=== PATIENT | male | born 1965 | race Caucasian/White ===

== ENCOUNTER 2020-11-06 09:42 | Outpatient (CLI) | payer BC, SELFPAY ==
--- NOTE | 2020-11-06 15:00 | EST_ITS ---
Patient Info Name: Nas Mendieta Age: 54 years : 1965 Gender: Male Ht: 69 in Wt: 243 lbs BSA: 2.36 m2 HR: 71 bpm BP: 114 / 64 mmHg Heart Rhythm: Left Fascicular Block, Sinus Rhythm Technical Quality: Good Exam Date: 11/06/2020 10:09 AM Exam Location: [facility] Patient Status: Outpatient Admit Date: 11/06/2020 Staff Ordering Physician: Ricardo Vazquez MD Attending Provider: Ricardo Vazquez MD Exercise Technologist: Sylvia Bettencourt CRT Exercise Physician: Bridget Del Rio CEP Exam Type: CA stress test treadmill Study Info Indications CerebralInfarction - An exercise stress test was performed. History/Risk Factors None. Summary 1. 1. Negative Td exercise stress test for ischemic ST changes by ECG criteria. 2. 2. Good functional capacity, achieving 9.5 METs of workload. 3. 3. Appropriate HR response to exercise. 4. 4. Appropriate HR recovery at 1 minute post exercise. 5. 5. No imaging with stress testing. Protocol: Td Stress ECG Details Stage: REST Duration (min): 1 min : 55 sec Speed (mph): 0.0 Grade (%): 0 HR (bpm): 69 SBP (mmHg): 114 DBP (mmHg): 64 METS: --- Stage: REST Duration (min): 4 min : 23 sec Speed (mph): 0.0 Grade (%): 0 HR (bpm): 76 SBP (mmHg): 114 DBP (mmHg): 64 METS: --- Stage: STAGE 1 Duration (min): 1 min : 0 sec Speed (mph): 1.7 Grade (%): 10 HR (bpm): 105 SBP (mmHg): 114 DBP (mmHg): 64 METS: --- Stage: STAGE 1 Duration (min): 2 min : 0 sec Speed (mph): 1.7 Grade (%): 10 HR (bpm): 113 SBP (mmHg): 114 DBP (mmHg): 64 METS: --- Stage: STAGE 1 Duration (min): 3 min : 0 sec Speed (mph): 1.7 Grade (%): 10 HR (bpm): 116 SBP (mmHg): 156 DBP (mmHg): 64 METS: --- Stage: STAGE 2 Duration (min): 1 min : 0 sec Speed (mph): 2.5 Grade (%): 12 HR (bpm): 127 SBP (mmHg): 156 DBP (mmHg): 64 METS: --- Stage: STAGE 2 Duration (min): 2 min : 0 sec Speed (mph): 2.5 Grade (%): 12 HR (bpm): 136 SBP (mmHg): 156 DBP (mmHg): 64 METS: --- Stage: STAGE 2 Duration (min): 3 min : 0 sec Speed (mph): 2.5 Grade (%): 12 HR (bpm): 143 SBP (mmHg): 179 DBP (mmHg): 72 METS: --- Stage: STAGE 3 Duration (min): 1 min : 0 sec Speed (mph): 3.4 Grade (%): 14 HR (bpm): 151 SBP (mmHg): 179 DBP (mmHg): 72 METS: --- Stage: STAGE 3 Duration (min): 1 min : 59 sec Speed (mph): 3.4 Grade (%): 14 HR (bpm): 158 SBP (mmHg): 179 DBP (mmHg): 72 METS: --- Stage: RECOVERY Duration (min): 1 min : 0 sec Speed (mph): 0.0 Grade (%): 0 HR (bpm): 145 SBP (mmHg): 146 DBP (mmHg): 66 METS: --- Stage: RECOVERY Duration (min): 2 min : 0 sec Speed (mph): 0.0 Grade (%): 0 HR (bpm): 127 SBP (mmHg): 154 DBP (mmHg): 67 METS:
== END 2020-11-06 09:43 | disposition home or self-care (01) ==
LOC: CHSCARD 09:47
PROVIDERS: PCP Internal Medicine; Visit Provider Internal Medicine
DX: I63.9 Cerebral infarction, unspecified (principal)
CPT/HCPCS: 93017

== ENCOUNTER 2023-06-12 15:42 | Observation (INO) | payer OTHER, SELFPAY ==
[2023-06-12] VITALS (7 sets, daily range): BP systolic 100–126; BP diastolic 66–85; PULSE 84–100; RESP 16–20; TEMP 36.2; O2SAT 94–98
--- NOTE | ~2023-06-12 | XR_ITS ---
XR chest 1V portable 06/12/2023 16:29 Indication: Shortness of breath Procedure: AP portable chest Comparison: 09/17/2018 Findings: Heart size normal. Right basilar infiltrates. Mild elevation the right diaphragm. Left lung clear. No significant effusion, edema or pneumothorax. Impression: 1: Bibasilar infiltrates may represent atelectasis or developing pneumonia. Reviewed, dictated and finalized at location L. RMATION SCIENTIST Impression: 1: Bibasilar infiltrates may represent atelectasis or developing pneumonia.
--- NOTE | ~2023-06-12 | CT_ITS ---
EXAMINATION: CT brain wo con DATE: 06/12/2023 16:29 INDICATION: Syncope TECHNIQUE: Computed tomography (CT) of the head was performed without intravenous contrast. Sagittal and coronal reconstructions were performed. The mA was adjusted according to patient size. Iterative reconstruction technique was employed. The dose-length product was 605.33 mGy-cm. COMPARISON: None FINDINGS: No acute intracranial hemorrhage, acute infarction or abnormal extra axial fluid collection. Ventricl es are normal and symmetric. No mass/mass effect. Prominent mucosal thickening the bilateral ethmoid sinuses and small amount of dependently layering mucus in the right sphenoid sinus. The orbits and ma stoid air cells are normal. IMPRESSION: 1. Normal brain. No acute intracranial process. Reviewed, dictated and finalized at location A. NE REPAIRER
--- NOTE | 2023-06-12 15:57 | ECG_ITS ---
Measurements Intervals [place] Rate: 77 P: 65 IA: 157 QRS: 1 QRSD: 101 T: 72 QT: 354 QTc: 402 Interpretive Statements SINUS RHYTHM WITH SINUS ARRHYTHMIA INCOMPLETE RIGHT BUNDLE BRANCH BLOCK BASELINE ARTIFACT- I, II, III, AVR, AVL, AVF BORDERLINE ECG NO PREVIOUS ECG AVAILABLE FOR COMPARISON Electronically Signed On 06-12-2023 20:03:05 BE[employer] TRAPPER by Dm Cruz D.O.
[2023-06-12] MEDS: SODIUM CHLORIDE 0.9% IV 1,000 ML 999 ML IV CONT (16:09)
[2023-06-12 16:14] LABS: Hematocrit 53.3 % (40.0-54.0); Mean Corpuscular HGB Conc 33.8 g/dL (32.0-36.0); Mean Corpuscular Hemoglobin 32.2 pg (27.0-31.0); Mean Corpuscular Volume 95.3 fL (78.0-102.0); Mean Platelet Volume 9.5 fl (8.7-11.0); Platelet Count Result 276 K/mm3 (150-420); Red Blood Count 5.59 M/mm3 (4.70-6.10); Red Cell Distribution Width 12.2 % (11.6-14.4); White Blood Count 16.7 K/mm3 (4.8-10.8)
[2023-06-12 16:32] LABS: INR 1.1; Partial Thromboplastin Time 28.6 SEC (23.90-30.70); Prothrombin Time 11.9 Seconds (9.50-12.10)
[2023-06-12 16:35] LABS: Lactic Acid Reflex 1.5 mmol/L (0.4-2.0)
[2023-06-12 16:36] LABS: Band Neutrophils Percent 0 % (0-6); Lymphocytes Absolute Manual 0.83 K/mm3 (1.1-4.5); Lymphocytes Percent Manual 5 % (18-44); Monocytes Absolute Manual 0.33 K/mm3 (0.1-0.90); Monocytes Percent Manual 2 % (3-9); Neutrophils Absolute Manual 15.19 K/mm3 (1.3-6.7); Neutrophils Percent Manual 91 % (46-73); Platelet Estimate Adequate (Adequate); Total Cells Counted 100
[2023-06-12 16:37] LABS: Eosinophils Absolute Manual 0.33 K/mm3 (0.02-0.5); Eosinophils Percent Manual 2 % (1-6)
[2023-06-12 16:50] LABS: Alanine Aminotransferase 31 U/L (16-63); Albumin Level 4.1 g/dL (3.4-5.0); Alkaline Phosphatase 130 U/L (46-116); Anion Gap 7 mmol/L (8-16); Aspartate Amino Transferase 18 U/L (15-37); Bilirubin,Total 0.5 mg/dL (0.00-1.00); Blood Urea Nitrogen 15 mg/dL (7-18); Carbon Dioxide 32 mmol/L (21-32); Chloride 102 mmol/L (98-108); Estimated CRCL calculation 68 ml/min; Estimated Glomerular Filt Rate 56; Glucose 123 mg/dL (70-99); Magnesium 1.9 mg/dL (1.8-2.4); NT Pro B Type Natriuretic Pept 25 pg/mL (0-125); Osmolality Calculated 293 mOsm/kg (285-295); Potassium 4.5 mmol/L (3.5-5.1); Sodium 141 mmol/L (136-145); Total Protein 8.2 g/dL (6.4-8.2)
[2023-06-12 16:53] LABS: Troponin I < 4.0 ng/L (0.00-60.4)
[2023-06-12 17:29] LABS: Influenza A QL RT-PCR Negative (Negative); Influenza B QL RT-PCR Negative (Negative); RSV RNA, RT-PCR Negative (Negative); SARS-CoV-2 RNA PCR Negative (Negative)
--- NOTE | 2023-06-12 17:40 | ED.SYNCOPE ---
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 No significant past medical history, is a smoker. Currently not short of breath does have cold-like symptoms with mild nonproductive cough and congestion. MD complaint: loss of consciousness Onset (ago): hour(s) Duration of episode: 10 -: second(s) Prodromal symptoms: lightheaded, diaphoresis and nausea/vomiting Witnessed: Yes - by Bystander Context: at rest Injuries sustained associated with event: none Current symptoms: weakness Related Data Home Medications Medication Instructions Recorded Confirmed No Home Medications 06/12/23 06/12/23 Allergies Allergy/AdvReac Type Severity Reaction Status Date / Time No Known Allergies Allergy Verified 06/12/23 15:59 Review of Systems Review of Systems: All systems reviewed & are unremarkable except as noted in HPI and below PMFSH Past Medical History Medical History Tobacco abuse Exam Const: General: no acute distress and diaphoretic Nutritional Appearance: obese Orientation/consciousness: patient oriented x3 Limitations: no limitations HENMT: Head: normal to inspection Face and sinus: normal facial exam Mouth: Yes Normal oral and palatal mucosa present Eyes: Conjunctivae: conjunctivae normal Neck: Neck: normal visual inspection Chest: Chest palpation & inspection: normal inspection of the chest Resp: Effort & Inspection: normal respiratory effort Auscultation: clear to auscultation bilaterally Cardio: Rate: regular rate Rhythm: regular rhythm GI: Auscultation: normal bowel sounds Skin: General skin exam: normal color Rashes: no rashes Wounds: no wounds Neuro: General: patient oriented x3, moves all extremities and no meningeal signs Extrem: General: normal to inspection Psych: Mental Status: mental status grossly normal Affect: normal affect Course Course Emergency Course: patient continues to have weakness and feels cold asking for extra blankets, chest x-ray performed appears to have lower lobe infiltrates and blood count elevated at 16,000 white blood cell count, lactic acid is negative, COVID is an RSV and influenza are negative. Patient received a L of IV fluids warm blankets and started on IV antibiotics with ceftriaxone and azithromycin for pneumonia. Vital Signs Vital signs: Vital Signs Temperature 36.2 C L 06/12/23 15:42 Pulse Rate 84 06/12/23 15:42 Respiratory Rate 18 06/12/23 15:42 Blood Pressure 124/66 06/12/23 15:42 Pulse Oximetry 94 06/12/23 15:42 Oxygen Delivery Room Air 06/12/23 15:42 Temperature 36.2 C L 06/12/23 15:50 Pulse Rate 84 06/12/23 15:50 Respiratory Rate 20 06/12/23 15:50 Blood Pressure 124/66 06/12/23 15:50 Pulse Oximetry 94 06/12/23 16:18 Oxygen Delivery Room Air 06/12/23 16:18 MDM - Syncope Lab Data 06/12/23 16:09 06/12/23 16:09 Labs: Lab Results 06/12/23 06/12/23 Range/Units 16:09 16:35 WBC 16.7 H (4.8-10.8) K/mm3 RBC 5.59 (4.70-6.10) M/mm3 Hgb 18.0 (14.0-18.0) g/dL Hct 53.3 (40.0-54.0) % MCV 95.3 (78.0-102.0) fL MCH 32.2 H (27.0-31.0) pg MCHC 33.8 (32.0-36.0) g/dL RDW 12.2 (11.6-14.4) % Plt Count 276 (150-420) K/mm3 MPV 9.5 (8.7-11.0) fl Immature Gran % (Auto) Not Reportable Neut % (Auto) Not Reportable Lymph % (Auto) Not Reportable [place] % (Auto) Not
[2023-06-12] MEDS: AZITHROMYCIN 500 MG/NS 250 ML 500 MG/250 ML BAG 250 MG IVPB (18:17)
[2023-06-12] MEDS: NICOTINE (*PBKC) 21 MG PATCH 1 PATCH TRANSDERM (19:15)
[2023-06-12] MEDS: SODIUM CHLORIDE 0.9% IV 1,000 ML 100 ML IV CONT (19:50)
[2023-06-13] VITALS: BP 126/68; PULSE 98; RESP 18; TEMP 37.2; O2SAT 94
[2023-06-13 03:35] LABS: Appearance Urine Clear (Clear); Bilirubin Urine Negative (Negative); Blood Urine Negative (Negative); Color Urine Yellow (Yellow); Glucose Urine UA Negative (Negative); Ketones Urine Negative (Negative); Leukocyte Esterase Ur Negative LEU/UL (Negative); Nitrate Urine Negative (Negative); Protein Urine Trace (Negative); Specific Grav Ur 1.025 (1.010-1.020); pH Urine 6.5 (5.0-8.0)
[2023-06-13 03:40] LABS: Add Urine Microscopic? YES; Bacteria Urine None seen /hpf; Mucus Urine Noted /lpf; RBC Urine 0-2 /hpf (0-2); Squamous Epithelial Cell Urine None seen /hpf (Few); WBC Urine 0-3 /hpf (0-3)
[2023-06-13 05:43] LABS: Basophils Absolute Auto 0.02 K/mm3 (0.00-0.10); Basophils Percent Auto 0.2 % (0.0-1.0); Eosinophils Absolute Auto 0.01 K/mm3 (0.02-0.50); Eosinophils Percent Auto 0.1 % (1.0-6.0); Hematocrit 43.7 % (40.0-54.0); Hemoglobin 14.8 g/dL (14.0-18.0); Immature Granulocyte Absolute 0.05 K/mm3 (0.00-0.00); Immature Granulocyte Percent A 0.4 % (0.0-0.0); Lymphocytes Absolute Auto 0.89 K/mm3 (1.10-4.50); Lymphocytes Percent Auto 6.8 % (18.0-42.0); Mean Corpuscular HGB Conc 33.9 g/dL (32.0-36.0); Mean Corpuscular Hemoglobin 32.5 pg (27.0-31.0); Mean Corpuscular Volume 95.8 fL (78.0-102.0); Mean Platelet Volume 9.2 fl (8.7-11.0); Monocytes Absolute Auto 0.78 K/mm3 (0.10-0.90); Monocytes Percent Auto 5.9 % (2.0-11.0); Neutrophils Absolute Auto 11.4 K/mm3 (1.7-7.2); Neutrophils Percent Auto 86.6 % (50.0-70.0); Platelet Count Result 208 K/mm3 (150-420); Red Blood Count 4.56 M/mm3 (4.70-6.10); Red Cell Distribution Width 12.6 % (11.6-14.4); White Blood Count 13.2 K/mm3 (4.8-10.8)
[2023-06-13 05:59] LABS: Alanine Aminotransferase 23 U/L (16-63); Albumin Level 2.9 g/dL (3.4-5.0); Alkaline Phosphatase 76 U/L (46-116); Anion Gap 6 mmol/L (8-16); Aspartate Amino Transferase 17 U/L (15-37); Bilirubin,Total 0.4 mg/dL (0.00-1.00); Blood Urea Nitrogen 21 mg/dL (7-18); Calcium 7.6 mg/dL (8.5-10.1); Carbon Dioxide 28 mmol/L (21-32); Chloride 106 mmol/L (98-108); Estimated CRCL calculation 78 ml/min; Estimated Glomerular Filt Rate > 60; Glucose 110 mg/dL (70-99); Osmolality Calculated 294 mOsm/kg (285-295); Potassium 3.7 mmol/L (3.5-5.1); Sodium 140 mmol/L (136-145); Total Protein 6.1 g/dL (6.4-8.2)
[2023-06-13] MEDS: SODIUM CHLORIDE 0.9% IV 1,000 ML 100 ML IV CONT (06:02)
[2023-06-13 08:00] VITALS: BP 116/70; PULSE 89; RESP 20; RESP 22; TEMP 36.8; O2SAT 95
--- NOTE | 2023-06-13 08:53 | PM.SD2 ---
Same Day Admit/Disch: HPI History of Present Illness Chief complaint: PNEUMONIA Narrative: Nas Mendieta is a 57 year old male istory of Present Illness HPI narrative: ? 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 No significant past medical history, is a smoker.? Currently not short of breath does have cold-like symptoms with mild nonproductive cough and congestion. MD complaint: loss of consciousness PMFSH Past Medical History Medical History Tobacco abuse Social History Social History Smoking packs per day: 2 Smoking cigarettes per day: 40.0 Years smoked: 37 Smoking pack-years: 74.00 Smoking status: Current every day smoker Tobacco type: cigarettes Alcohol intake: former Substance use: former Substance use type: marijuana Lack of Transportation: No Lack of Food: Never True Current Housing: I Do Not Have Housing Concerned About Future Housing: No Difficulty Paying Gas/Electric Bills: No Difficulty Paying for Meds: No Currently Unemployed: No Education: High School Diploma/GED Difficulty w/ Childcare or Family Care: No Spiritual care concerns: No Same Day Admit/Disch: Med Pre-admit Medications Home Medications Medication Instructions Recorded Confirmed Type No Home Medications 06/12/23 06/12/23 History albuterol sulfate 90 mcg/actuation 2 puff inhalation Q4H PRN 06/13/23 Rx aerosol inhaler shortness of breath or wheezing #8.5 grams azithromycin 250 mg tablet See Rx Instructions PO .COMPLEX #6 06/13/23 Rx (Zithromax Z-Gopi) tabs methylprednisolone 4 mg tablets in See Rx Instructions PO .COMPLEX 06/13/23 Rx a dose pack (Medrol (Gopi)) #21 ea Review of Systems Review of Systems cough , Shortness of breath, All systems reviewed & are unremarkable except as noted in HPI and below Exam Const: General: cooperative, comfortable, well developed and Physically active Orientation/consciousness: oriented to person, oriented to place, oriented to time and patient oriented x3 Eyes: General: appearance normal, both eyes and all related structures Neck: Neck: normal visual inspection, full ROM and no lymphadenopathy Resp: Effort & Inspection: normal respiratory effort, able to speak in complete sentences and Actively coughing Auscultation: breath sounds absent (lower lobes slightly ) Cardio: Jugular venous distension: no JVD Rate: regular rate Rhythm: regular rhythm GI: Inspection: normal to inspection : General: Yes no CVA tenderness Skin: General skin exam: normal color and no rashes or lesions noted Neuro: General: oriented to person, oriented to place, oriented to time, patient oriented x3, gait normal and moves all extremities Cognition (Neuro): normal cognition Speech: normal speech Gait exam (Neuro): Normal gait present Sensory Exam: normal sensation Extrem: General: normal to inspection, full ROM and capillary refill normal DS: Data Data Completed and Pending Labs on day of discharge: Labs from last 24 hours 06/13/23 06/13/23 06/12/23 05:40 03:31 16:35 WBC 13.2 H RBC 4.56 L Hgb 14.8 Hct 43.7 MCV 95.8 MCH 32.5 H MCHC 33.9 RDW 12.6 Plt Count 208 MPV 9.2 Immature Gran % (Auto) 0.4 H Neut % (Auto) 86.6 H Lymph % (Auto) 6.8 L [place] % (Auto) 5.9 Eos % (Auto) 0.1 L Baso % (Auto) 0.2 Lymph # (Auto) 0.89 L [place] # (Auto) 0.78 Eos # (Auto) 0.01 L Baso # (Auto) 0.02 Abs Immat Gran (auto) 0.05 H Absolute Neuts (auto) 11.4 H Absolute Nucleated RBC 0.00 Total Counted Neutrophils % (Man
--- NOTE | 2023-06-13 10:31 | PC.NURSE ---
pt up in room getting dressed family member here to take pt home all belonging taken with pt pt taken to exit via w/c and rn pt sharon well discharge instructions given verbalized understanding
--- NOTE | 2023-06-16 09:13 | PC.NURSE ---
Discharge call back attempted, no answer
--- NOTE | 2023-06-17 08:10 | PC.NURSE ---
discharge call back attempted, no answer
--- NOTE | 2023-06-19 09:29 | PC.NURSE ---
Discharge call back completed, discharge instructions received and understood, did follow up with Dr Vazquez and released back to work already, to have repeat cxr on Jul 08
== END 2023-06-13 10:20 | disposition home or self-care (01) ==
LOC: CHSED 17:46 → CHS2ND 18:03
PROVIDERS: Admitting Provider Internal Medicine; Emergency Provider Emergency Medicine; PCP Internal Medicine; Visit Provider Internal Medicine
DX: J18.9 Pneumonia, unspecified organism (principal); E86.0 Dehydration; R55 Syncope and collapse; I45.10 Unspecified right bundle-branch block; D72.829 Elevated white blood cell count, unspecified; Z20.822 Contact with and (suspected) exposure to COVID-19; F17.210 Nicotine dependence, cigarettes, uncomplicated; Z79.51 Long term (current) use of inhaled steroids; Z79.52 Long term (current) use of systemic steroids; Z79.899 Other long term (current) drug therapy
CPT/HCPCS: 36415; 70450; 71045; 80053; 81001; 83605; 83735; 83880; 84484; 85025; 85610; 85730; 87040; 87637; 93005; 96360; 96361; 96365; 96367; 99285; A9270; G0378; J0456; J0696; J7030